=== PATIENT | male | born 1955 | race Caucasian/White ===

== ENCOUNTER 2016-10-20 14:41 | Emergency (ER) | payer BC ==
[2016-10-20 14:41] VITALS: BMI 30.4
[2016-10-20 15:05] VITALS: O2SAT 95
[2016-10-20 15:24] LABS: BASO % 0.5 % (0.0-2.0); EOS # 0.1 K/uL (0.0-0.7); EOS % 1.5 % (0.0-4.0); HEMOGLOBIN 13.5 g/dL (12.0-18.0); LYMPH # 1.6 K/uL (1.0-4.3); LYMPH % 24.1 % (20.0-40.0); MEAN CELL VOLUME 98.4 fL (80.0-94.0); MEAN CORPUSCULAR HEMOGLOBIN 32.3 pg (27.0-31.0); MEAN CORPUSCULAR HGB CONC 32.8 g/dL (33.0-37.0); MEAN PLATELET VOLUME 9.5 fL (7.2-11.7); MONO # 0.5 K/uL (0.0-0.8); NEUT # 4.4 K/uL (1.8-7.0); NEUT % 65.9 % (50.0-75.0); NRBC % 0.1 % (0.0-2.0); RBC 4.17 Mil/uL (4.40-5.90); RED CELL DISTRIBUTION WIDTH 12.7 % (11.5-14.5); WHITE BLOOD COUNT 6.7 K/uL (4.8-10.8)
[2016-10-20 15:32] LABS: ALBUMIN 4.2 g/dL (3.5-5.0)
[2016-10-20 15:35] LABS: ALB/GLOB RATIO 1.3 (1.0-2.1); ALT/SGPT 43 U/L (21-72); AST/SGOT 34 U/L (17-59); BLOOD UREA NITROGEN 14 mg/dL (9-20); GFR AFRICAN-AMERICAN > 60; GFR NON-AFRICAN AMERICAN > 60
[2016-10-20 15:36] LABS: CALCIUM 9.1 mg/dl (8.6-10.4); LIPASE 85 U/L (23-300)
--- NOTE | 2016-10-20 15:36 | RAD ---
HISTORY: SOB COMPARISON: No prior. TECHNIQUE: Chest PA and lateral FINDINGS: LUNGS: The lungs are clear. PLEURA: No significant pleural effusion identified. No pneumothorax apparent. CARDIOVASCULAR: Normal. OSSEOUS STRUCTURES: There is diffuse bone demineralization and multilevel degenerative changes in the spine. VISUALIZED UPPER ABDOMEN: Normal. OTHER FINDINGS: None. IMPRESSION: No active pulmonary disease.
--- NOTE | 2016-10-20 15:58 | C.PDOC ---
History Of Present Illness Patient is 60 y/o male, whose past medical history includes pre-diabetes, and HTN, presents to the emergency department for evaluation of reproducible right sided chest pain that he woke up with this morning. Patient states he is currently getting physical therapy, and had worked out his upper body there. Otherwise, denies any shortness of breath, cough, palpitations, nausea, vomiting , or fever. Time Seen by Provider: 10/20/16 14:52 Chief Complaint (Nursing): Chest Pain History Per: Patient History/Exam Limitations: no limitations Onset/Duration Of Symptoms: Hrs Current Symptoms Are (Timing): Still Present Associated Symptoms: denies: Nausea, Diaphoresis, Syncope Modifying Factors: None Exacerbating Factors: None Alleviating Factors: None Recent travel outside of the [place]: No Additional History Per: Patient Past Medical History Reviewed: Historical Data, Nursing Documentation, Vital Signs Vital Signs: Last Vital Signs Temp 98 F 10/20/16 14:50 Pulse 88 10/20/16 14:50 Resp 22 10/20/16 14:50 BP Pulse Ox 95 10/20/16 16:35 - Medical History PMH: Fractures (FINGER), Hypercholesterolemia Family History: States: Unknown Family Hx - Social History Hx Tobacco Use: No Hx Alcohol Use: Yes Hx Substance Use: No - Immunization History Hx Tetanus Toxoid Vaccination: No Hx Influenza Vaccination: No Hx Pneumococcal Vaccination: No Review Of Systems Except As Marked, All Systems Reviewed And Found Negative. Constitutional: Negative for: Fever, Chills Cardiovascular: Positive for: Chest Pain. Negative for: Palpitations, Edema, Light Headedness Respiratory: Negative for: Cough, Shortness of Breath, Sputum Gastrointestinal: Negative for: Nausea, Vomiting Neurological: Negative for: Headache, Dizziness Physical Exam - Physical Exam Appears: Non-toxic, No Acute Distress Skin: Normal Color, Warm, Dry Head: Atraumatic, Normacephalic Eye(s): bilateral: Normal Inspection Oral Mucosa: Moist Neck: Normal ROM, Supple Chest: Symmetrical, No Deformity, Tenderness (tenderness to right anterior chest wall), No Ecchymosis Cardiovascular: Rhythm Regular, No Murmur Respiratory: Normal Breath Sounds, No Rales, No Rhonchi, No Wheezing Gastrointestinal/Abdominal: Soft, No Tenderness Extremity: Bilateral: Atraumatic, Normal ROM Neurological/Psych: Oriented x3, Normal Speech, Normal Cognition ED Course And Treatment - Laboratory Results Result Diagrams: 10/20/16 15:21 10/20/16 15:21 Lab Interpretation: Normal ECG: Interpreted By Me ECG Rhythm: Sinus Rhythm, PVC ECG Interpretation: No Acute Changes Rate From EC O2 Sat by Pulse Oximetry: 95 (on RA) Pulse Ox Interpretation: Normal - Radiology CXR: Interpreted by Me CXR Interpretation: Yes: No Acute Disease Progress Note: Urinalysis, blood work, CXR, EKG ordered and reviewed. Patient was given Toradol. On re-evaluation lungs clear, in no distress Reassessment Condition: Improved Disposition Counseled Patient/Family Regarding: Studies Performed, Diagnosis, Need For Followup, Rx Given - Disposition Referrals: [facility] [Outside] [facility] [Outside] Disposition: HOME/ ROUTINE Disposition Time: 16:50 Condition: IMPROVED Additional Instructions: Return to ED if any increase symptoms Prescriptions: Naproxen [Naprosyn] 1 tab PO BID PRN #25 tab PRN Reason: Pain Instructions: Chest Wall Pain (ED) - POA Present On Arrival: None - Clinical Impression Clinical Impression: Chest wall pain - PA / SHOE STAMPER / Resident Statement MD/DO has reviewed & agrees with the documentation as recorded. - Scribe Statement The provider has reviewed the documentation as recorded by the Scribe Daksha Escobar All medical record entries made by the Darin were at my direction and personally dictated by me. I have reviewed the chart and agree that the record accurately reflects my personal performance of the history, physical exam, medical decision making, and the department course for this patient. I have also personally directed, reviewed, and agree with the discharge instructions and disposition.
[2016-10-20 16:15] LABS: SQUAMOUS EPITHIAL 1 /hpf (0-5); URINE BILIRUBIN NEGATIVE (NEGATIVE); URINE BLOOD NEGATIVE (NEGATIVE); URINE CLARITY Clear (Clear); URINE COLOR Yellow (YELLOW); URINE GLUCOSE (UA) 3+ mg/dL (Normal); URINE LEUKOCYTE ESTERASE NEG Leu/uL (Negative); URINE NITRATE NEGATIVE (NEGATIVE); URINE PROTEIN 1+ mg/dL (NEGATIVE); URINE UROBILINOGEN NORMAL mg/dL (0.2-1.0)
[2016-10-20 16:39] VITALS: BP 138/74; PULSE 87; RESP 16; TEMP 98.7
--- NOTE | 2016-10-21 14:41 | CARD ---
APPROVED REPORT EKG Measurement Heart [id number] <Conclusion> Sinus rhythm with premature supraventricular complexes Otherwise normal ECG
== END 2016-10-20 16:45 | disposition home or self-care (01) ==
LOC: C.ER 14:41
DX: R07.89 Other chest pain (principal)
CPT/HCPCS: 71020; 80053; 81001; 83690; 84484; 85025; 93005; 96374; 99285; J1885

== ENCOUNTER 2017-01-12 13:20 | Emergency (ER) | payer BC ==
[2017-01-12 13:20] VITALS: BMI 30.4
[2017-01-12 13:23] VITALS: BP 153/84; PULSE 85; TEMP 98.3; O2SAT 96
--- NOTE | 2017-01-12 13:53 | C.PDOC ---
History Of Present Illness 61 year old male presents to the ED via EMS with complaint of left knee pain which began earlier today. Patient states that was trying to cross the street when he heard a loud honking, which startled him and caused him to fall onto his knees and hands. Patient was able to get up without assistance and called EMS. Patient denies LOC/head injury, nausea, vomiting, extremity numbness/ weakness. Time Seen by Provider: 01/12/17 13:27 Chief Complaint (Nursing): Lower Extremity Problem/Injury History Per: Patient, EMS History/Exam Limitations: no limitations Onset/Duration Of Symptoms: Hrs Current Symptoms Are (Timing): Still Present Recent travel outside of the [place]: No Additional History Per: Patient, EMS - Knee Description Of Injury: Fell Past Medical History Reviewed: Historical Data, Nursing Documentation, Vital Signs Vital Signs: Last Vital Signs Temp 98.3 F 01/12/17 13:21 Pulse 85 01/12/17 13:21 Resp 18 01/12/17 13:21 BP 153/84 H 01/12/17 13:21 Pulse Ox 96 01/12/17 15:35 - Medical History PMH: Fractures (FINGER), HTN, Hypercholesterolemia Surgical History: No Surg Hx Family History: States: Unknown Family Hx - Social History Hx Tobacco Use: No Hx Alcohol Use: Yes Hx Substance Use: No - Immunization History Hx Tetanus Toxoid Vaccination: No Hx Influenza Vaccination: No Hx Pneumococcal Vaccination: No Review Of Systems Except As Marked, All Systems Reviewed And Found Negative. Gastrointestinal: Negative for: Vomiting Neurological: Negative for: Weakness Physical Exam - Physical Exam Additional Physical Exam Comments: Constitutional: No acute distress. Head: Normocephalic. Atraumatic. Eyes: PERRL. EOMI. ENT: Moist mucous membranes. Neck: Supple. Cardiovascular: Regular rate. Radial pulses 2+ bilaterally. Chest: No tenderness. Respiratory: Clear to auscultation bilaterally. GI: Soft. Nontender. Nondistended. Back: No CVA tenderness. Musculoskeletal: Tenderness over left anterior knee with light palpation. Full ROM. No femur, tibial, fibular tenderness Skin: No rash. Abrasion to left anterior knee. Neurologic: Alert, no focal deficit. Steady gait. Patient is able to bear weight. ED Course And Treatment O2 Sat by Pulse Oximetry: 96 (Room air) Pulse Ox Interpretation: Normal Medical Decision Making Medical Decision Making: Impression : 61 y/o male present with left knee pain. Plan : * Toradol IM * Tylenol PO * Left Knee XR Impression: Degenerative changes. If pain persists, consider MRI. Disposition - Disposition Referrals: Ni Segal MD [Staff Provider] - Disposition: HOME/ ROUTINE Disposition Time: 15:34 Condition: STABLE Prescriptions: Ibuprofen [Motrin] 600 mg PO Q6 #25 tab Instructions: Knee Pain (ED) Forms: [facility] (Latvian) - Clinical Impression Clinical Impression: Knee contusion - Scribe Statement The provider has reviewed the documentation as recorded by the Scribe Mal Benson All medical record entries made by the Scribe were at my direction and personally dictated by me. I have reviewed the chart and agree that the record accurately reflects my personal performance of the history, physical exam, medical decision making, and the department course for this patient. I have also personally directed, reviewed, and agree with the discharge instructions and disposition.
--- NOTE | 2017-01-12 15:24 | RAD ---
Left knee three views History: Fall. Comparison: 06/02/2014. Findings: Severe patellofemoral compartment joint space narrowing with subchondral sclerosis and osteophytosis. Moderate medial compartment joint space narrowing of the femorotibial joint space with subchondral sclerosis. Small suprapatellar joint effusion. Enthesopathic change at the superior bony patella. Productive change and or small loose osteochondral body at the anterior aspect of the femorotibial joint space. Impression: Degenerative changes. If pain persists, consider MRI.
[2017-01-12 16:04] VITALS: RESP 20
== END 2017-01-12 16:03 | disposition home or self-care (01) ==
LOC: C.ER 13:20
DX: S80.02XA Contusion of left knee, initial encounter (principal); W18.30XA Fall on same level, unspecified, initial encounter; Y92.410 Unspecified street and highway as the place of occurrence of the external cause
CPT/HCPCS: 73562; 96372; 99284; J1885

== ENCOUNTER 2017-01-19 17:47 | Emergency (ER) | payer BC ==
[2017-01-19 17:47] VITALS: BMI 30.4
--- NOTE | 2017-01-19 18:56 | C.PDOC ---
History Of Present Illness 61 y/o male sent in by Dr. Beverly Escobar for evaluation for a left knee fracture. Patient was seen here for a fall January 12 and had a negative XRAY result for fracture. Patient was discharged and continued to walk with pain to his left knee. Patient saw Dr. Beverly Escobar on 4 days ago and was scheduled for an MRI 2 days ago that showed he had a patella fracture. Patient was advised to come in by Dr. Beverly Escobar for evaluation and orthopedic referral. Patient denies weakness or numbness. Time Seen by Provider: 01/19/17 18:39 Chief Complaint (Nursing): Lower Extremity Problem/Injury History Per: Patient History/Exam Limitations: no limitations Onset/Duration Of Symptoms: Days Current Symptoms Are (Timing): Still Present Severity: Mild Recent travel outside of the [place]: No Additional History Per: Patient Past Medical History Reviewed: Historical Data, Nursing Documentation, Vital Signs Vital Signs: Last Vital Signs Temp 97.6 F 01/19/17 21:35 Pulse 84 01/19/17 21:35 Resp 14 01/19/17 21:35 BP 132/83 01/19/17 21:35 Pulse Ox 96 01/19/17 21:35 - Medical History PMH: Fractures (FINGER), HTN, Hypercholesterolemia Family History: States: Unknown Family Hx - Social History Hx Tobacco Use: No Hx Alcohol Use: Yes Hx Substance Use: No - Immunization History Hx Tetanus Toxoid Vaccination: No Hx Influenza Vaccination: No Hx Pneumococcal Vaccination: No Review Of Systems Except As Marked, All Systems Reviewed And Found Negative. Musculoskeletal: Positive for: Leg Pain (Left knee pain) Neurological: Negative for: Weakness, Numbness Physical Exam - Physical Exam Appears: Non-toxic, No Acute Distress Skin: Warm, Dry Head: Atraumatic, Normacephalic Extremity: Tenderness (Diffuse tenderness anteriorly. No joint line tenderness.) , No Deformity, Swelling (diffuse suprapatellare effusion with bulge sign.) Extremity: Left: Joint Effusion (Suprapatellar area), Painful To Bear Weight Pulses: Left Dorsalis Pedis: Normal, Right Dorsalis Pedis: Normal Neurological/Psych: Oriented x3, Normal Motor, Normal Sensation Gait: Steady (Pain with ambulation) ED Course And Treatment O2 Sat by Pulse Oximetry: 97 (RA) Pulse Ox Interpretation: Normal - Physician Consult Information Outcome Of Conversation: Case discussed with Dr Escobar. He requests consultation with dr Robert Perales. MRI report given to Dr Robert Perales. He requests CT scan be done now and he will follow up with the patient in the office. Patient was placed in a knee immobilizer. Disposition Counseled Patient/Family Regarding: Studies Performed, Diagnosis, Need For Followup - Disposition Referrals: Minh Peralta MD [Staff Provider] - Ellis Escobar MD [Staff Provider] - Disposition: HOME/ ROUTINE Disposition Time: 21:50 Condition: IMPROVED Instructions: Patellar Fracture (ED), Knee Immobilizer (ED) Forms: [employer] (Icelandic) - Clinical Impression Clinical Impression: Patellar fracture - Scribe Statement The provider has reviewed the documentation as recorded by the Scribe Mario francis All medical record entries made by the Scribe were at my direction and personally dictated by me. I have reviewed the chart and agree that the record accurately reflects my personal performance of the history, physical exam, medical decision making, and the department course for this patient. I have also personally directed, reviewed, and agree with the discharge instructions and disposition.
[2017-01-19 21:35] VITALS: BP 132/83; PULSE 84; RESP 14; TEMP 97.6
[2017-01-19 21:51] VITALS: O2SAT 97
--- NOTE | 2017-01-19 21:51 | CT ---
EXAM: CT Left Lower Extremity Without Intravenous Contrast, Knee EXAM DATE/TIME: 01/19/2017 8:07 PM CLINICAL HISTORY: 61 years old, male; Injury or trauma; Fall; Initial encounter; Fracture, traumatic; Closed fracture; Patella or knee; Left; Additional info: Patella fracture TECHNIQUE: Axial computed tomography images of the left knee without intravenous contrast. All CT scans at this facility use one or more dose reduction techniques, viz.: automated exposure control; ma/kV adjustment per patient size (including targeted exams where dose is matched to indication; i.e. head); or iterative reconstruction technique. Coronal and sagittal reformatted images were created and reviewed. COMPARISON: Prior studies are not available for FINDINGS: Limitations: Evaluation is slightly limited by rotation. Bones/joints: There is soft tissue swelling at the left knee. There is a left knee joint effusion. There is a linear fracture through the lateral aspect of the left patella. Distal femur is intact. Proximal tibia is intact. Proximal fibula is intact. There is degenerative change involving all joint compartments of the knee. There is mild joint space narrowing. There are small osteophytes. Soft tissues: See above. IMPRESSION: Linear fracture through the lateral aspect of the left patella with joint effusion; degenerative change
== END 2017-01-19 21:57 | disposition home or self-care (01) ==
LOC: C.ER 17:47
DX: S82.002G Unspecified fracture of left patella, subsequent encounter for closed fracture with delayed healing (principal); W18.30XD Fall on same level, unspecified, subsequent encounter

== ENCOUNTER 2018-02-15 23:09 | Emergency (ER) | payer BC ==
[2018-02-15 23:09] VITALS: BMI 30.4
--- NOTE | 2018-02-15 23:17 | C.PDOC ---
History Of Present Illness 62 year old male c/o left shoulder pain. Patient reports he slipped at home and hurt his left shoulder. Patient remembers the event, states he has been drinking alcohol today. Patient denies headache, LOC, visual changes, CP, SOB, abdominal pain, nausea, vomit, dizziness, weakness, numbness. Time Seen by Provider: 02/15/18 23:17 Chief Complaint (Nursing): Upper Extremity Problem/Injury History Per: Patient History/Exam Limitations: no limitations Onset/Duration Of Symptoms: Hrs Current Symptoms Are (Timing): Still Present Quality: "Pain" Recent travel outside of the [place]: No Additional History Per: Patient Past Medical History Reviewed: Historical Data, Nursing Documentation, Vital Signs - Medical History PMH: Fractures (FINGER), HTN, Hypercholesterolemia Surgical History: No Surg Hx Family History: States: Unknown Family Hx - Social History Hx Tobacco Use: No Hx Alcohol Use: Yes Hx Substance Use: No - Immunization History Hx Tetanus Toxoid Vaccination: No Hx Influenza Vaccination: No Hx Pneumococcal Vaccination: No Review Of Systems Constitutional: Negative for: Fever, Chills Cardiovascular: Negative for: Chest Pain Respiratory: Negative for: Cough, Shortness of Breath Gastrointestinal: Negative for: Nausea, Vomiting, Abdominal Pain Musculoskeletal: Positive for: Shoulder Pain, Arm Pain Skin: Negative for: Rash Neurological: Negative for: Weakness, Numbness, Headache, Dizziness Physical Exam - Physical Exam Appears: Non-toxic, No Acute Distress Skin: Warm, Dry Head: Normacephalic Eye(s): bilateral: Normal Inspection, PERRL, EOMI Neck: Supple Chest: Symmetrical Cardiovascular: Rhythm Regular Respiratory: No Rales, No Rhonchi, No Wheezing Gastrointestinal/Abdominal: Soft, No Tenderness, No Guarding, No Rebound Back: Normal Inspection Extremity: Tenderness (left shoulder) Extremity: Bilateral: Atraumatic, Normal Color And Temperature, Normal ROM Pulses: Left Radial: Normal, Right Radial: Normal Neurological/Psych: Oriented x3, Normal Speech, Normal Cognition, Normal Motor, Normal Sensation Gait: Steady ED Course And Treatment O2 Sat by Pulse Oximetry: 94 Pulse Ox Interpretation: Normal - Radiology CXR: Interpreted by Me - Other Rad shoulder X-Ray: Interpreted by Me, Viewed By Me Interpretation: no fx or dislocation, old healed clavicle fx Progress Note: Plan: - Left shoulder X-Ray Reevaluation Time: 01:36 Reassessment Condition: Improved Medical Decision Making Medical Decision Making: Upon provider reevaluation patient is feeling better, is medically stable, and requires no further treatment in the ED at this time. Patient will be discharged home . Counseling was provided and all questions were answered regarding diagnosis and need for follow up with dr britney olson. There is agreement to discharge plan. Return if symptoms persist or worsen. Disposition Counseled Patient/Family Regarding: Studies Performed, Diagnosis, Need For Followup - Disposition Referrals: Ellis Olson MD [Staff Provider] - Disposition: HOME/ ROUTINE Disposition Time: 23:17 Condition: FAIR Additional Instructions: please return if symptoms recur Instructions: Shoulder Pain (DC) Forms: [employer] (Hebrew) - Clinical Impression Clinical Impression: Fall, Shoulder pain, left - Scribe Statement The provider has reviewed the documentation as recorded by the Scribe Mal Benson All medical record entries made by the Scribe were at my direction and personally dictated by me. I have reviewed the chart and agree that the record accurately reflects my personal performance of the history, physical exam, medical decision making, and the department course for this patient. I have also personally directed, reviewed, and agree with the discharge instructions and disposition.
[2018-02-15 23:29] VITALS: RESP 16
[2018-02-16 02:09] VITALS: BP 151/83; PULSE 88; TEMP 98.7; O2SAT 95
--- NOTE | 2018-02-16 07:48 | RAD ---
Date of service: 02/16/2018 PROCEDURE: Radiographs of the Left Shoulder HISTORY: fall COMPARISON: Chest x-ray 10/20/2016 FINDINGS: BONES: No acute fracture. An old healed fracture [id number] left clavicle suggested. Similar to chest x-ray from 2017 JOINTS: Glenohumeral and acromioclavicular arthrosis SOFT TISSUES: Normal. OTHER FINDINGS: None. IMPRESSION: No acute fracture. Other findings as above.
== END 2018-02-16 01:55 | disposition home or self-care (01) ==
LOC: C.ER 23:09
DX: M25.512 Pain in left shoulder (principal); W01.0XXA Fall on same level from slipping, tripping and stumbling without subsequent striking against object, initial encounter; Y92.009 Unspecified place in unspecified non-institutional (private) residence as the place of occurrence of the external cause

== ENCOUNTER 2018-03-23 13:33 | Emergency (ER) | payer BC ==
[2018-03-23 13:46] VITALS: BMI 31.4
[2018-03-23 13:49] VITALS: TEMP 98.3
[2018-03-23 14:23] LABS: SQUAMOUS EPITHIAL < 1 /hpf (0-5); URINE BILIRUBIN NEGATIVE (NEGATIVE); URINE BLOOD NEGATIVE (NEGATIVE); URINE CLARITY Clear (Clear); URINE COLOR Yellow (YELLOW); URINE GLUCOSE (UA) 3+ mg/dL (Normal); URINE LEUKOCYTE ESTERASE NEG Leu/uL (Negative); URINE PROTEIN 1+ mg/dL (NEGATIVE); URINE UROBILINOGEN NORMAL mg/dL (0.2-1.0)
[2018-03-23] MEDS ORDERED: Lidocaine 5% Patch TD STA (14:40)
[2018-03-23] MEDS ORDERED: Lidocaine 5% Patch TD ONE (14:49)
--- NOTE | 2018-03-23 14:55 | C.PDOC ---
History Of Present Illness 62 year old male presents to the emergency department via EMS with complaints of bilateral lower back and hip pain. Patient states that the pain began this morning while he was standing in the kitchen. Patient reports taking a tablet, which resolved his pain significantly but his pain was further aggravated when he was involved in an argument with his . Patient is volatile in the ER, sometimes laughing, sometimes crying. He denies fever, headache, nausea, and vomiting. He is asking for food. Time Seen by Provider: 03/23/18 13:34 Chief Complaint (Nursing): Back Pain History Per: Patient Onset/Duration Of Symptoms: Hrs Current Symptoms Are (Timing): Still Present Quality Of Discomfort: "Pain" Associated Symptoms: denies: Incontinence, New Weakness, New Numbness Past Medical History Reviewed: Historical Data, Nursing Documentation, Vital Signs Vital Signs: Last Vital Signs Temp 98.3 F 03/23/18 13:45 Pulse 99 H 03/23/18 13:45 Resp 18 03/23/18 13:45 BP 134/87 03/23/18 13:45 Pulse Ox 97 03/23/18 13:45 - Medical History PMH: Fractures (FINGER), HTN, Hypercholesterolemia Surgical History: No Surg Hx Family History: States: No Known Family Hx - Social History Hx Tobacco Use: No Hx Alcohol Use: Yes Hx Substance Use: No - Immunization History Hx Tetanus Toxoid Vaccination: No Hx Influenza Vaccination: No Hx Pneumococcal Vaccination: No Review Of Systems Except As Marked, All Systems Reviewed And Found Negative. Constitutional: Negative for: Fever Gastrointestinal: Negative for: Nausea, Vomiting Musculoskeletal: Positive for: Back Pain Neurological: Negative for: Headache Physical Exam - Physical Exam Appears: Well, Non-toxic, No Acute Distress, Other (morbidly obese) Skin: Normal Color, Warm, Dry Head: Atraumatic, Normacephalic Eye(s): bilateral: Normal Inspection, PERRL, EOMI Oral Mucosa: Moist Neck: Normal, Supple Chest: Symmetrical, No Tenderness Cardiovascular: Rhythm Regular, No Murmur Respiratory: Normal Breath Sounds, No Rales, No Rhonchi, No Wheezing Gastrointestinal/Abdominal: Soft, No Tenderness, No Guarding, No Rebound Neurological/Psych: Oriented x3, Normal Speech, Normal Cognition ED Course And Treatment ECG: Interpreted By Me, Viewed By Me ECG Rhythm: Atrial Fibrillation ECG Interpretation: Abnormal Interpretation Of ECG: Atrial fibrillation with rapid ventricular response. Anterior infarct, age undetermined. Abnormal EKG. Rate From EC O2 Sat by Pulse Oximetry: 97 (RA) Pulse Ox Interpretation: Normal Medical Decision Making Medical Decision Making: Plan: EKG Lidoderm 5% Motrin 600mg PO Tylenol 975mg PO Urinalysis Disposition Counseled Patient/Family Regarding: Diagnosis, Need For Followup, Rx Given - Disposition Referrals: Ellis Escobar MD [Staff Provider] - Disposition: HOME/ ROUTINE Disposition Time: 14:53 Condition: STABLE Prescriptions: Ibuprofen [Motrin] 600 mg PO TID #15 tab Lidocaine 5% [Lidoderm] 1 ea TD DAILY #2 patch Instructions: Low Back Pain in Adults Forms: [facility] (Bahraini), General Discharge Instructions - POA Present On Arrival: None - Clinical Impression Clinical Impression: Low back pain - Scribe Statement The provider has reviewed the documentation as recorded by the Scribe (Francisco Cooper) Provider Attestation: All medical record entries made by the Scribe were at my direction and personally dictated by me. I have reviewed the chart and agree that the record accurately reflects my personal performance of the history, physical exam, medical decision making, and the department course for this patient. I have also personally directed, reviewed, and agree with the discharge instructions and disposition.
[2018-03-23 15:07] VITALS: BP 126/82; PULSE 101; RESP 19
[2018-03-23 17:14] VITALS: O2SAT 97
--- NOTE | 2018-03-24 12:07 | CARD ---
APPROVED REPORT Date of service: 03/23/2018 EKG Measurement Heart [id number] <Conclusion> Atrial fibrillation with rapid ventricular response Anterior infarct, age undetermined Abnormal ECG
== END 2018-03-23 15:07 | disposition home or self-care (01) ==
LOC: C.ER 13:33
DX: M54.5 Low back pain (principal)

== ENCOUNTER 2018-04-02 09:55 | Emergency (ER) | payer BC ==
[2018-04-02 09:55] VITALS: BMI 31.4
[2018-04-02 10:00] VITALS: TEMP 97.5
--- NOTE | 2018-04-02 10:19 | C.PDOC ---
History Of Present Illness 62 y/o male pt with hx of DM and HTN presents to the ER c/o left knee pain for x1 day. Pt reports he was at a [employer] when he trip and fell from a gap on the floor at 1600. Pt denies change in sensation, numbness, weakness, chest pain, abdominal pain, URI sx, head injury, LOC, fever and chills. Time Seen by Provider: 04/02/18 10:12 Chief Complaint (Nursing): Lower Extremity Problem/Injury History Per: Patient History/Exam Limitations: no limitations Onset/Duration Of Symptoms: Days (x1) Current Symptoms Are (Timing): Still Present Severity: Moderate - Knee Description Of Injury: Fell Past Medical History Reviewed: Historical Data, Nursing Documentation, Vital Signs Vital Signs: Last Vital Signs Temp 97.5 F L 04/02/18 09:58 Pulse 120 H 04/02/18 09:58 Resp 18 04/02/18 09:58 BP Pulse Ox 99 04/02/18 09:58 - Medical History PMH: Fractures (FINGER), HTN, Hypercholesterolemia Family History: States: Unknown Family Hx - Social History Hx Tobacco Use: No Hx Alcohol Use: Yes Hx Substance Use: No - Immunization History Hx Tetanus Toxoid Vaccination: No Hx Influenza Vaccination: No Hx Pneumococcal Vaccination: No Review Of Systems Constitutional: Negative for: Fever, Chills, Other (LOC; head injury ) Cardiovascular: Negative for: Chest Pain Gastrointestinal: Negative for: Abdominal Pain Genitourinary: Negative for: Dysuria Musculoskeletal: Positive for: Other (left knee pain) Neurological: Negative for: Weakness, Numbness, Other (change in sensation ) Physical Exam - Physical Exam Appears: Non-toxic, No Acute Distress Skin: Warm, Dry Head: Atraumatic, Normacephalic Eye(s): bilateral: Normal Inspection, PERRL, EOMI Oral Mucosa: Moist Throat: Normal Neck: Normal ROM, Supple Chest: Symmetrical Cardiovascular: Rhythm Regular Respiratory: Normal Breath Sounds, No Rales, No Rhonchi, No Wheezing Gastrointestinal/Abdominal: Soft, No Tenderness Back: No CVA Tenderness Extremity: Tenderness (throughout the left knee), No Calf Tenderness, No Deformity, Other (abrasion to the left knee; 1x1 cm, no acitive bleeding. Pt is able to bend, extend and walk but with pain; Removal wrist splint on L wrist) Extremity: Left: Normal Color And Temperature, Painful To Bear Weight Pulses: Left Femoral: Normal, Left Dorsalis Pedis: Normal Neurological/Psych: Oriented x3, Normal Speech, Normal Cognition, Normal Motor, Normal Sensation ED Course And Treatment O2 Sat by Pulse Oximetry: 99 (RA) Pulse Ox Interpretation: Normal - Other Rad L knee X-Ray: Read By Radiologist Interpretation: Accession No. : [id number]. Patient Name / ID : ENMA GUNN / [id number]. Exam Date : 04/02/2018 10:14:24 ( Approved ). Study Comment : Sex / Age : M / [id number]. Creator : Jannette Null MD. Dictator : Jannette Null MD. Licensed Psychologist Manager : Data Conversion Analyst : Jannette Null MD. Approver2 : Report Date : 04/02/2018 10:56:46. My Comment : . Date of service: 04/02/2018. PROCEDURE: Left Knee Radiographs. HISTORY: Pain. COMPARISON: None. FINDINGS: BONES: Bone alignment and mineralization are normal. There is no acute displaced fracture or bone destruction. JOINTS: There is mild tricompartmental degenerative osteoarthrosis with reduced joint spaces, marginal osteophytes and tibial spiking, worse in the medial compartment. JOINT EFFUSION: None. OTHER FINDINGS: None. IMPRESSION: No acute fracture or dislocation. Medical Decision Making Medical Decision Making: Plans: -- left knee XR -- Ibuprofen 600mg PO XR done. While waiting for results, patient constantly making demands for food and drinks. Yelling at RN to bring him juice while she was triaging other patients. Ambulating without difficulty to RN's desk to make demands. Results noted and discussed with patient. Patient asking for Xray reports to be mailed to his home. Explained that he can contact medical records to request reports, but we cannot mail them to him. Offered PRASAD wrap for comfort, patient refused. Stable for discharge. Disposition - Disposition Disposition: HOME/ ROUTINE Disposition Time: 11:12 Condition: GOOD Additional Instructions: VELIA NORWOOD, thank you for letting us take care of you today. Your provider was Vanessa Tarango MD and you were treated for FALL. The emergency medical care you received today was directed at your acute symptoms. If you were prescribed any medication, please fill it and take as directed. It may take several days for your symptoms to resolve. Return to the Emergency Department if your symptoms worsen, do not improve, or if you have any other problems. Please contact your doctor or call one of the physicians/clinics you have been referred to that are listed on the Patient Visit Information form that is included in your discharge packet. Bring any paperwork you were given at discharge with you along with any medications you are taking to your follow up visit. Our treatment cannot replace ongoing medical care by a primary care provider outside of the emergency department. Thank you for allowing the [facility] team to be part of your care today. If you had an X-Ray or CT scan: A Radiologist will review the ED reading if any change in treatment is needed we will contact you. If you had a blood, urine, or wound culture: It will take several days for the results, if any change in treatment is needed we will contact you. If you had an STI test: It will take 48 hours for the results. Please call after 1 week if you have not heard back. Instructions: Knee Sprain (DC) Forms: Modusly ([facility]) - Clinical Impression Clinical Impression: Contusion of left knee - Scribe Statement The provider has reviewed the documentation as recorded by the Osmelibjose rafael Sharp Do Provider Attestation: All medical record entries made by the Osmelibjose rafael were at my direction and personally dictated by me. I have reviewed the chart and agree that the record accurately reflects my personal performance of the history, physical exam, medical decision making, and the department course for this patient. I have also personally directed, reviewed, and agree with the discharge instructions and disposition.
--- NOTE | 2018-04-02 11:00 | RAD ---
Date of service: 04/02/2018 PROCEDURE: Left Knee Radiographs. HISTORY: Pain. COMPARISON: None. FINDINGS: BONES: Bone alignment and mineralization are normal. There is no acute displaced fracture or bone destruction. JOINTS: There is mild tricompartmental degenerative osteoarthrosis with reduced joint spaces, marginal osteophytes and tibial spiking, worse in the medial compartment. JOINT EFFUSION: None. OTHER FINDINGS: None. IMPRESSION: No acute fracture or dislocation.
[2018-04-02 11:25] VITALS: BP 138/86; PULSE 98; RESP 16
[2018-04-02 18:51] VITALS: O2SAT 99
== END 2018-04-02 11:24 | disposition home or self-care (01) ==
LOC: C.ER 09:55
DX: S80.02XA Contusion of left knee, initial encounter (principal); W01.0XXA Fall on same level from slipping, tripping and stumbling without subsequent striking against object, initial encounter; Y92.89 Other specified places as the place of occurrence of the external cause

== ENCOUNTER 2018-08-16 18:49 | Observation (INO) | payer BC ==
[2018-08-16 18:56] VITALS: BMI 31.1
--- NOTE | 2018-08-16 20:02 | C.PDOC ---
History Of Present Illness The patient is a 62-year-old male who underwent admission at [facility] one month ago for CHF and peripheral edema. Patient states that his symptoms improved after being placed on medication. Patient states that his s ymptoms have worsened over the past 4 days and his legs are very swollen and painful. He reports a painful burning sensation to his leg and states that they appear more red than usual. Patient also reports experiencing trouble walking. Patient states he waited to be evaluated by his PMD, Dr. Miguel, for four hours today when he was told by office nurse to present to the ED for further evaluation. Patient denies chest pain and shortness of breath. Time Seen by Provider: 08/16/18 19:37 Chief Complaint (Nursing): Lower Extremity Problem/Injury History Per: Patient History/Exam Limitations: no limitations Onset/Duration Of Symptoms: Days (4) Current Symptoms Are (Timing): Still Present Additional History Per: Patient Past Medical History Reviewed: Historical Data, Nursing Documentation, Vital Signs Vital Signs: Last Vital Signs Temp 97.4 F L 08/16/18 18:56 Pulse 73 08/16/18 18:56 Resp 20 08/16/18 18:56 BP 126/79 08/16/18 18:56 Pulse Ox 97 08/16/18 18:56 Primary Care Provider: Ellis Escobar - Medical History PMH: Fractures (FINGER), HTN, Hypercholesterolemia Surgical History: No Surg Hx Family History: States: Unknown Family Hx - Social History Hx Tobacco Use: No Hx Alcohol Use: Yes Hx Substance Use: No - Immunization History Hx Tetanus Toxoid Vaccination: No Hx Influenza Vaccination: No Hx Pneumococcal Vaccination: No Review Of Systems Cardiovascular: Negative for: Chest Pain Respiratory: Negative for: Shortness of Breath Musculoskeletal: Positive for: Leg Pain Physical Exam - Physical Exam Appears: Non-toxic, Other (uncomfortable ) Skin: Normal Color, Warm, Dry Head: Atraumatic, Normacephalic Oral Mucosa: Moist Neck: Supple Chest: Symmetrical, No Deformity, No Tenderness Cardiovascular: Rhythm Regular, No Murmur Respiratory: Normal Breath Sounds, No Rales, No Rhonchi, No Wheezing Extremity: Capillary Refill (less than 2 seconds ), Other (tense edema to bilateral lower extremities associated with some skin discomfort. slight erythema noted. ) Pulses: Left Dorsalis Pedis: Normal, Right Dorsalis Pedis: Normal Neurological/Psych: Oriented x3, Normal Speech, Normal Cognition, Normal Sensation ED Course And Treatment - Laboratory Results Result Diagrams: 08/16/18 21:44 08/16/18 21:44 Lab Interpretation: Abnormal (Hgb 9.8, WBC 3.8, BNP, 4440) ECG: Interpreted By Ma ECG Rhythm: Atrial Fibrillation ECG Interpretation: No Acute Changes Rate From EC O2 Sat by Pulse Oximetry: 97 (on RA) Pulse Ox Interpretation: Normal - Radiology CXR: Interpreted by Me CXR Interpretation: Yes: Cardiomegaly, Other (CHF with vascular congestion) - CT Scan/US Abdominal US Other Rad Studies (CT/US): Read By Radiologist, Radiology Report Reviewed CT/US Interpretation: CLINICAL HISTORY: Peripheral edema. TECHNIQUE: Realtime sonographic images were obtained in multiple projections. COMMENTS: The liver is of increased echogenicity without evidence of mass or defect measuring 17 cm. There is no intra or extrahepatic biliary ductal dilatation. The common bile duct measures 0.4 cm. The gallbladder is partially contracted without evidence of calculi. The gallbladder wall is thickened measuring 0.5 cm. Trace perihepatic free fluid is seen. RLQ small free fluid. Right small pleural effusion is seen. The inferior vena cava is patent. The visualized portions of the pancreas are unremarkable. The spleen is of uniform echo texture and does not appear enlarged measuring 10.7 cm. The right kidney measures 10.1 x 5.7 x 6.2 cm and the left kidney measures 13.1 x 5.3 x 5.6 cm. Both kidneys are free of hydronephrosis. IMPRESSION: 1. Echogenic fatty liver. 2. Thickened gallbladder wall compatible with cholecystitis. 3. Trace perihepatic free fluid is seen. 4. RLQ small free fluid. 5. Right small pleural effusion is seen. 6. Consider follow-up with CT. Progress Note: Patient treated in ED with IV Lasix. - Physician Consult Information Physician Contacted: Ellis Escobar Outcome Of Conversation: Patient seen in ED by Dr Escobar. He will be kept on observation for cardiac evaluation and treatment of severe peripheral edema and CHF. Disposition - Disposition Disposition: HOSPITALIZED Disposition Time: 22:23 Condition: FAIR - POA Present On Arrival: None - Clinical Impression Clinical Impression: CHF (congestive heart failure), Peripheral edema - Scribe Statement The provider has reviewed the documentation as recorded by the Scribe (Kristen Escobar) Provider Attestation: All medical record entries made by the Scribe were at my direction and personally dictated by me. I have reviewed the chart and agree that the record accurately reflects my personal performance of the history, physical exam, medi jovanna decision making, and the department course for this patient. I have also personally directed, reviewed, and agree with the discharge instructions and disposition.
[2018-08-16 21:53] LABS: BASO % 0.5 % (0.0-2.0); EOS # 0.1 K/uL (0.0-0.7); EOS % 3.4 % (0.0-4.0); HEMOGLOBIN 9.8 g/dL (12.0-18.0); LYMPH # 1.2 K/uL (1.0-4.3); LYMPH % 32.1 % (20.0-40.0); MEAN CELL VOLUME 92.2 fL (80.0-94.0); MEAN CORPUSCULAR HEMOGLOBIN 29.2 pg (27.0-31.0); MEAN CORPUSCULAR HGB CONC 31.7 g/dL (33.0-37.0); MEAN PLATELET VOLUME 9.1 fL (7.2-11.7); MONO # 0.5 K/uL (0.0-0.8); MONO % 12.4 % (0.0-10.0); NEUT % 51.6 % (50.0-75.0); NRBC % 0.1 % (0.0-2.0); RBC 3.36 Mil/uL (4.40-5.90); RED CELL DISTRIBUTION WIDTH 18.1 % (11.5-14.5); WHITE BLOOD COUNT 3.8 K/uL (4.8-10.8)
[2018-08-16 22:01] LABS: ALB/GLOB RATIO 1.2 (1.0-2.1); ALBUMIN 4.2 g/dL (3.5-5.0); ALT/SGPT 16 U/L (21-72); AST/SGOT 19 U/L (17-59); BLOOD UREA NITROGEN 16 mg/dL (9-20); CALCIUM 9.4 mg/dl (8.6-10.4); GFR NON-AFRICAN AMERICAN > 60
[2018-08-16 22:13] LABS: B-TYPE NATRIURETIC PEPTIDE 4440 pg/mL (0-900)
[2018-08-16 22:15] LABS: URINE BACTERIA RARE (<OCC); URINE BILIRUBIN NEGATIVE (NEGATIVE); URINE BLOOD NEGATIVE (NEGATIVE); URINE CLARITY Clear (Clear); URINE COLOR Yellow (YELLOW); URINE GLUCOSE (UA) NORMAL (Normal); URINE LEUKOCYTE ESTERASE NEG Leu/uL (Negative); URINE PROTEIN NEGATIVE (NEGATIVE)
[2018-08-17 01:15] VITALS: RESP 20
[2018-08-17] MEDS: (Novolog) Insulin Aspart, Recombinant 100 u/ml 10 ml vial SC SCH ×2 (07:39→12:45)
[2018-08-17 07:50] VITALS: TEMP 98
[2018-08-17 08:14] VITALS: O2SAT 96
[2018-08-17 08:20] VITALS: PULSE 78
[2018-08-17] MEDS ORDERED: Diclofenac Sodium Delayed Release 50 mg EC Tab PO SCH (10:00)
[2018-08-17] MEDS ORDERED: Potassium Chloride 10 mEq ER Tab PO SCH (10:00)
[2018-08-17] MEDS ORDERED: Multiple Vitamins Tab PO SCH (10:00)
[2018-08-17] MEDS ORDERED: LUBIPROSTONE 24 MCG PO SCH (10:00)
[2018-08-17] MEDS ORDERED: Pantoprazole 40 mg EC Tab PO SCH (10:00)
[2018-08-17] MEDS: CREON PO SCH ×2 (10:03→12:45)
--- NOTE | 2018-08-17 10:04 | US ---
Date of service: 08/16/2018 HISTORY: peripheral edema COMPARISON: None. TECHNIQUE: Sonographic evaluation of the abdomen. FINDINGS: LIVER: Measures 17.0 cm. Diffusely increased echogenicity of the liver parenchyma. Consistent with fatty infiltration. Smooth contour. No mass. No biliary ductal dilatation. Hepatopetal portal venous flow demonstrated. There is some pulsatility seen in the portal venous Doppler tracing which may indicate some degree of right heart failure. Please correlate. GALLBLADDER: No cholelithiasis. Mild nonspecific mural thickening. No pericholecystic fluid. Negative sonographic Saleem sign. COMMON BILE DUCT: Measures 4 mm. No stones. No dilatation. PANCREAS: Unremarkable as visualized. No mass. No ductal dilatation. RIGHT KIDNEY: Measures 10.1cm. Normal echogenicity. No calculus, mass, or hydronephrosis. LEFT KIDNEY: Measures 13.1cm. Normal echogenicity. No calculus, mass, or hydronephrosis. SPLEEN: Normal in size and contour. No mass. AORTA: No aneurysmal dilatation. IVC: Unremarkable. OTHER FINDINGS: Trace ascites. Small right pleural effusion. IMPRESSION: Mild nonspecific thickening of the gallbladder wall. Trace ascites. Fatty infiltration of the liver. Pulsatile portal venous flow which may reflect right heart failure. Please correlate. No evidence of cholelithiasis. Small right pleural effusion. The preliminary findings for this examination were reported by [facility] at 11:17 p.m. on 08/16/2018. There is concurrence of this report with the preliminary findings.
[2018-08-17 10:10] VITALS: BP 120/82
--- NOTE | 2018-08-17 10:30 | RAD ---
Date of service: 08/16/2018 PROCEDURE: CHEST RADIOGRAPH, 1 VIEW HISTORY: SOB COMPARISON: 10/20/2016 FINDINGS: LUNGS: Clear. PLEURA: No pneumothorax or pleural fluid seen. CARDIOVASCULAR: No aortic atherosclerotic calcification present. Normal. OSSEOUS STRUCTURES: No significant abnormalities. VISUALIZED UPPER ABDOMEN: Normal. OTHER FINDINGS: None. IMPRESSION: No active disease.
--- NOTE | 2018-08-17 15:31 | CP.PCM.PCO ---
Physician Communication Note - Physician Communication Note Physician Communication Note: Please see above .
--- NOTE | 2018-08-17 23:24 | CP.PCM.HP ---
Past Patient History - Infectious Disease Hx of Infectious Diseases: None - Past Social History Smoking Status: Former Smoker - CARDIAC Hx Hypercholesterolemia: Yes Hx Hypertension: Yes - HEENT Hx HEENT Problems: Yes - ENDOCRINE/METABOLIC Hx Endocrine Disorders: Yes Hx Diabetes Mellitus Type 2: Yes - MUSCULOSKELETAL/RHEUMATOLOGICAL Hx Fractures: Yes (FINGER) - GASTROINTESTINAL Hx Gastrointestinal Disorders: Yes Other/Comment: PT REPORTS HE HAS 'STOMACH PROBLEMS' - PSYCHIATRIC Hx Substance Use: No - SURGICAL HISTORY Hx Surgeries: No - ANESTHESIA Hx Anesthesia: No Meds Allergies/Adverse Reactions: Allergies Allergy/AdvReac Type Severity Reaction Status Date / Time No Known Allergies Allergy Verified 08/16/18 18:56 Results - Vital Signs Recent Vital Signs: Last Vital Signs Temp 98.0 F 08/17/18 07:49 Pulse 78 08/17/18 08:00 Resp 20 08/17/18 07:49 BP 120/82 08/17/18 10:02 Pulse Ox 96 08/17/18 12:00 - Labs Result Diagrams: 08/16/18 21:44 08/16/18 21:44 Labs: Laboratory Results - last 24 hr 08/17/18 08/17/18 00:58 06:05 POC Glucose (mg/dL) 180 H 133 H
== END 2018-08-17 14:59 | disposition left against medical advice (07) ==
LOC: C.ER 18:49 → C.9E 21:06 → C.6T 23:13
PROVIDERS: ADMIT Internal Medicine Nephrology; ATTEND Internal Medicine Nephrology
DX: I11.0 Hypertensive heart disease with heart failure (principal); I50.9 Heart failure, unspecified; Z87.891 Personal history of nicotine dependence; E78.00 Pure hypercholesterolemia, unspecified; E11.9 Type 2 diabetes mellitus without complications; Z79.4 Long term (current) use of insulin
CPT/HCPCS: 71045; 76700; 80053; 81001; 82948; 83880; 84484; 85025; 96374; G0378; J1940